=== PATIENT | male | born 1975 | race Caucasian/White ===

== ENCOUNTER 2017-04-25 12:05 | Emergency (ER) | payer BC ==
[2017-04-25] MEDS ORDERED: IBUPROFEN 600 MG TABLET PO ONE (12:47)
[2017-04-25 12:51] VITALS: TEMP 97.7
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
[2017-04-25 13:04] VITALS: RESP 18
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
== END 2017-04-25 14:08 | disposition home or self-care (01) ==
LOC: ER 12:05
DX: S52.514A Nondisplaced fracture of right radial styloid process, initial encounter for closed fracture (principal); M25.531 Pain in right wrist; V18.4XXA Pedal cycle driver injured in noncollision transport accident in traffic accident, initial encounter
CPT/HCPCS: 29125; 73110; 99283

== ENCOUNTER → 2017-05-05 | Outpatient (CLI) | payer BC ==
--- NOTE | 2017-05-05 12:08 | DI ---
XR WRIST COMPLETE MIN 3VW,05/05/2017 10:54 AM: Clinical History: Right radial fracture Previous Exam: April 25, 2017 Findings: 3 views of the right wrist are obtained, and demonstrate a barely perceptible lucency in the region o f the nondisplaced intra-articular fracture of the distal right radius. The surrounding soft tissues are unremarkable. Impression: Healing fracture of the distal right radius.
== END ==
LOC: ORTHO 11:05
PROVIDERS: ATTEND Orthopaedic Surgery
DX: S52.591A Other fractures of lower end of right radius, initial encounter for closed fracture (principal)
CPT/HCPCS: 73110

== ENCOUNTER → 2017-05-19 | Outpatient (CLI) | payer BC ==
--- NOTE | 2017-05-19 15:56 | DI ---
XR WRIST COMPLETE MIN 3VW,05/19/2017 3:25 PM: Clinical History: Right distal radial fracture. Previous Exam: April 25, 2017 Findings: 3 views of right wrist are obtained, and demonstrates new sclerosis in the region of an intra-articul ar fracture of the right distal radius. There is no displacement. Impression: Healing right distal radial fracture
== END ==
LOC: ORTHO 15:35
PROVIDERS: ATTEND Orthopaedic Surgery
DX: S52.571D Other intraarticular fracture of lower end of right radius, subsequent encounter for closed fracture with routine healing (principal)
CPT/HCPCS: 73110